=== PATIENT | male | born 1985 | race Two or more races ===

== ENCOUNTER 2021-06-26 06:54 | Emergency (ER) | payer OTHER ==
[~2021-06-26] VITALS: Ht 170.2 cm; Wt 77.1 kg
[2021-06-26] MEDS ORDERED: TENORMIN25 MG (07:10)
[2021-06-26] MEDS ORDERED: HYDROCHLOROTHIA25 MG (07:11)
[2021-06-26] MEDS ORDERED: FIORICET (07:12)
== END 2021-06-26 08:48 | disposition home or self-care (01) ==
LOC: ER 06:54
DX: T22.111A Burn of first degree of right forearm, initial encounter (principal); T20.16XA Burn of first degree of forehead and cheek, initial encounter; Y27.8XXA Contact with other hot objects, undetermined intent, initial encounter; Y93.89 Activity, other specified; Y92.69 Other specified industrial and construction area as the place of occurrence of the external cause; Y99.8 Other external cause status